=== PATIENT | female | born 1945 | race Caucasian/White ===

== ENCOUNTER → 2017-12-09 | Outpatient (CLI) | payer MEDICARE ==
[~2017-12-09] MED LIST: ASPIRIN81 MG PO; CALCIUM 500 +1 EAC2 PO; CENTRUM SILVER1 EAC1 PO; DILTIAZEM ER120 MG PO; DIOVAN HCT 1601 EACH PO; KRILL OIL500 MG PO; LOVASTATIN40 MG PO; MAGNESIUM PO; METHIMAZOLE5 MG PO; PLAVIX75 MG PO; ROPINIROLE HCL2 M1 PO; SPIRIVA18 MCG IH; VITAMIN C PO
--- NOTE | 2017-12-09 15:57 | Diagnostic Imaging Report ---
PROCEDURE: US THYROID COMPARISON: [facility], US, US THYROID, 01/25/2017, 8:14. INDICATIONS:Hyperthyroidism, Thyroid Nodule TECHNIQUE: Transverse and longitudinal colin-scale sonographic images of the thyroid were obtained and supplemented with color doppler. FINDINGS: Right thyroid lobe: 7.2 x 3.8 x 4.0 cm, enlarged. Heterogeneous echogenicity. Mild increased vascularity. 5.1 x 3.0 x 3.1 cm in complex, mostly solid, heterogeneous nodule with innumerable punctate hyperechoic calcifications occupying the greater portion of the right thyroid lobe (previously measured 5.7 x 3.6 x 4.0 cm). Left thyroid lobe: 3.2 x 2.2 x 1.6 cm. Heterogeneous echogenicity. Normal vascularity. 1.2 x 0.6 x 0.9 cm solid mildly hypoechoic nodule in the mid aspect, without microcalcifications, or increased vascularity (previously measured 1.2 x 0.8 x 0.7 cm). 0.7 x 0.4 x 0.6 cm solid, mildly hypoechoic nodule in the inferior pole, with eccentric hyperechoic focus, which may represent a small calcification (previously measured 0.6 x 0.4 x 0.6 cm). Isthmus: 0.4 cm. Heterogeneous echogenicity. Normal vascularity. No focal lesions. No adenopathy or parathyroid masses. CONCLUSION: 1. Slight interval decrease in size of large complex, mostly solid nodule occupying most of the right thyroid lobe, and containing innumerable microcalcifications. Fine needle aspiration biopsy of this recommended for this nodule, if not previously performed. 2. Stable size and appearance of 2 nodules in the left thyroid lobe. 3. Enlarged right thyroid lobe. Increased vascularity of the right thyroid lobe is mostly due to the large nodule. Jacques Kuhn M.D. Dictated by: Jacques Kuhn M.D. on 12/09/2017 at 16:06 Electronically approved by: Jacques Kuhn M.D. on 12/09/2017 at 16:06
--- NOTE | 2017-12-09 18:59 | Diagnostic Imaging Report ---
PROCEDURE: CT CHEST WITHOUT CONTRAST CT scan of the chest WITHOUT intravenous contrast, using standard protocol. TECHNIQUE: The chest was scanned utilizing a multidetector helical scanner from the apex to the level of the adrenal glands. No IV contrast was administered for low dose nodule protocol. Coronal and sagittal multiplanar reformations were obtained. COMPARISON: [facility], CT, CT CHEST WO, 03/25/2015, 7:53. INDICATIONS: LUNG NODULE FINDINGS: Lines/tubes: None. Lungs and Airways: Stable 4-5 mm nodule in the left upper lobe (series 3, image 35). Stable 5 mm subpleural nodular density in the lingula (series 3, image 79). Stable mild bilateral upper lobe centrilobular emphysematous changes. No new pulmonary nodules. No masses or consolidation. Stable 4-5 mm calcified granuloma in the left lower lobe (series 3, image 73). Airways are clear, without endobronchial lesions. Pleura: No effusion, or pneumothorax. Heart and mediastinum: Stable enlargement of the right thyroid lobe. Heart size is normal. Atherosclerotic calcification of the aortic valve, coronary arteries and thoracic aortic arch. Aorta is non-aneurysmal. Main pulmonary artery is enlarged, measuring 3.5 cm. Lymph nodes: No mediastinal, hilar, or axillary adenopathy. Abdomen: Limited views of the upper abdomen show no abnormality within the visualized liver, spleen, pancreas, or kidneys. The adrenal glands are normal. Bones: No aggressive lytic lesions. Marked osteopenia. Marked multilevel degenerative disc changes with fusion of upper to mid thoracic spine vertebral bodies. IMPRESSION: 1. stable subcentimeter nodular densities since CT dated 03/25/2015, which are presumed benign given their stability. 2. Stable mild bilateral centrilobular emphysematous changes. 3. Stable enlargement of the right thyroid lobe. 4. Enlarged main pulmonary artery suggesting pulmonary hypertension. Jacques Kuhn M.D. Dictated by: Jacques Kuhn M.D. on 12/09/2017 at 19:08 Electronically approved by: Jacques Kuhn M.D. on 12/09/2017 at 19:08
== END ==
LOC: US 13:40
PROVIDERS: ATTEND Family Medicine
DX: D14.30 Benign neoplasm of unspecified bronchus and lung (principal)
CPT/HCPCS: 71250; 76536

== ENCOUNTER → 2019-03-19 | Outpatient (CLI) | payer MEDICARE ==
--- NOTE | 2019-03-19 13:33 | Diagnostic Imaging Report ---
EXAMINATION: Thyroid ultrasound. CLINICAL HISTORY: Nodules COMPARISON: 12/09/2017. DISCUSSION: Transverse and longitudinal images of the thyroid were obtained utilizing grayscale and color Doppler modalities. The right thyroid lobe 5.8 x 3.2 x 4.1 cm and shows heterogeneous echogenicity with mildly increased vascularity. Marginal interval increase in size of the previously described complex mostly solid heterogeneous nodule with innumerable punctate echogenic foci, now measuring 5.5 x 2.9 x 4 cm (previously 5.1 x 3 x 3.1 cm). The left thyroid lobe measures 3.9 x 1.2 x 1.2 cm and shows heterogeneous echogenicity. Stable round hypoechoic solid nodule in the midpole measuring 1.2 x 0.6 x 0.6 cm. Stable solid mildly hypoechoic nodule in the lower pole with suspected peripheral small calcification measuring 0.5 x 0.5 x 0.5 cm. The thyroid isthmus measures 0.3 cm and shows normal echogenicity. No nodules are seen. There is no adenopathy. IMPRESSION: Marginal interval increase in size of complex, large, suspicious nodule in the right thyroid. Again, fine-needle aspiration of this lesion is suggested if not already performed. Stable left thyroid nodules as above. Signed by: Dr. Monty Hwang M.D. on 03/19/2019 1:30 PM
== END ==
LOC: US 11:35
PROVIDERS: ATTEND Family Medicine
DX: E04.2 Nontoxic multinodular goiter (principal)
CPT/HCPCS: 76536

== ENCOUNTER → 2019-05-24 | Outpatient (CLI) | payer MEDICARE ==
--- NOTE | 2019-05-24 10:36 | Diagnostic Imaging Report ---
EXAMINATION: CHEST 2 VIEWS INDICATION: Chest pain COMPARISON: Chest radiograph of 05/13/2008 FINDINGS: TUBES and LINES: None. LUNGS: The lungs are mildly hyperinflated. Bilateral upper lobe emphysematous changes. No focal consolidation or pulmonary edema. PLEURA: No pleural effusion or pneumothorax. HEART AND MEDIASTINUM: The cardiomediastinal silhouette is normal in size and contour. Atherosclerotic calcifications of the thoracic aorta. BONES AND SOFT TISSUES: No acute fracture or dislocation. UPPER ABDOMEN: No free air under the diaphragm. IMPRESSION: No focal pneumonia or pulmonary edema. Signed by: Kel Cruz MD on 05/24/2019 10:33 AM
== END ==
LOC: RAD 09:54
PROVIDERS: ATTEND Family Medicine
DX: R07.9 Chest pain, unspecified (principal)
CPT/HCPCS: 71046

== ENCOUNTER → 2019-06-06 | Outpatient (CLI) | payer MEDICARE ==
--- NOTE | 2019-06-06 20:22 | Diagnostic Imaging Report ---
Thyroid Scan with Single Uptake Reason for exam: Thyroid nodules; thyrotoxicosis x 15 years. Radiopharmaceutical: I-123 Miguelito 0.27 mCi Report: After oral administration of I-123 Miguelito, the 6-hour thyroid uptake of iodine is 16% (normal 4-14%). Images of the thyroid was obtained in the anterior and anterior oblique projections. The right thyroid lobe is enlarged an consists of a round focus of tracer uptake with relatively homogeneous distribution of tracer throughout. A very small focus of tracer activity is barely perceptible in the left thyroid lobe and the remainder of the left thyroid lobe and isthmus are suppressed. The thyroid is in a normal anatomic location. A pyramidal lobe is not seen. There is no aberrant functioning thyroid tissue seen in the area scanned. Impression: 1. Mildly elevated thyroid uptake of iodine at 6 hours. 2. Thyroid scan shows an autonomously functioning large thyroid nodule in the right thyroid lobe with suppressed thyroid tissue in the left thyroid lobe and isthmus. Signed by: Dr. Zuly Bah M.D. on 06/06/2019 8:19 PM
== END ==
LOC: NM 09:38
PROVIDERS: ATTEND Family Medicine
DX: E04.1 Nontoxic single thyroid nodule (principal)
CPT/HCPCS: 78014

== ENCOUNTER → 2020-08-18 | Outpatient (CLI) | payer MEDICARE ==
--- NOTE | 2020-08-18 11:25 | Diagnostic Imaging Report ---
Thyroid ultrasound. History: Thyroid nodule. Comparison: 03/19/2019. Discussion: Transverse and longitudinal images of the thyroid were obtained demonstrating heterogeneous echogenicity of the thyroid. The right lobe measures 5.8 x 3.1 x 3.7 cm and the left lobe measures 4.0 x 2.1 x 1.7 cm. The isthmus is thickened measuring 4 mm. Bilateral bilateral thyroid nodules are identified. Right: Heterogeneous solid hypoechoic hypervascular nodule with multiple microcalcifications is again noted to occupy a majority of the right lobe. Left: Solid hypoechoic nodule in the interpolar region measuring 1.4 x 0.9 x 0.6 cm. A cystic lesion is present measuring 0.8 x 0.6 x 0.5 cm. IMPRESSION: Bilateral thyroid nodules without significant change. Dominant suspicious right thyroid nodule should be further evaluated with ultrasound-guided FNA, as previously mentioned. Signed by: Charles Redman on 08/18/2020 11:21 AM
== END ==
LOC: US 10:30
PROVIDERS: ATTEND Internal Medicine
DX: E04.1 Nontoxic single thyroid nodule (principal)
CPT/HCPCS: 76536

== ENCOUNTER → 2021-08-18 | Outpatient (CLI) | payer MEDICARE | LOC: US 09:32 | PROVIDERS: ATTEND Internal Medicine | DX: E04.1 Nontoxic single thyroid nodule (principal) | CPT/HCPCS: 76536 ==

== ENCOUNTER → 2021-12-21 | Outpatient (CLI) | payer MEDICARE | LOC: CT 09:30 | PROVIDERS: ATTEND Family Medicine | DX: Z09 Encounter for follow-up examination after completed treatment for conditions other than malignant neoplasm (principal); R91.8 Other nonspecific abnormal finding of lung field | CPT/HCPCS: 71250 ==

== ENCOUNTER → 2022-12-28 | Outpatient (CLI) | payer MEDICARE | LOC: US 08:55 | PROVIDERS: ATTEND Family Medicine | DX: E04.1 Nontoxic single thyroid nodule (principal) | CPT/HCPCS: 76536 ==

== ENCOUNTER → 2024-12-21 | Outpatient (REF) | payer MEDICARE | LOC: US 10:32 | PROVIDERS: ATTEND Internal Medicine | DX: E04.2 Nontoxic multinodular goiter (principal) | CPT/HCPCS: 76536 ==